=== PATIENT | male | born 1960 | race Caucasian/White ===

== ENCOUNTER 2022-05-23 16:08 | Outpatient (CLI) | payer BC, OTHER, SELFPAY ==
--- NOTE | ~2022-05-23 | CT_ITS ---
EXAMINATION:CT lung screening DATE: 05/23/2022 16:29 INDICATION: Tobacco use. Current smoker with 40 pack year history. TECHNIQUE: Computed tomography (CT) of the chest was performed without intravenous contrast. Automate d exposure control and iterative reconstruction technique were employed. The dose-length product (DLP ) was 216.92 mGy-cm. COMPARISON: None. FINDINGS: There is mild atelectasis bilaterally. There is a 2 mm nodule in right upper lobe. No pleur al effusion. The heart size is normal. There are coronary artery calcifications. No pericardial effus ion. There is mild bilateral gynecomastia. There is a 3.0 cm mass in right adrenal gland measuring lo w attenuation, consistent with an adenoma. There is a 3.2 cm mass in left adrenal gland measuring low attenuation, consistent with an adenoma. There is severe cervical spondylosis and mild thoracic spon dylosis. IMPRESSION: 1. Lung-RADS category 2: Benign appearance or behavior. Continue annual screening with noncontrast lo w-dose chest CT in 12 months. Reviewed, dictated and finalized at location A. IMPRESSION: 1. Lung-RADS category 2: Benign appearance or behavior. Continue annual screeni ng with noncontrast low-dose chest CT in 12 months.
== END 2022-05-23 16:09 | disposition home or self-care (01) ==
PROVIDERS: PCP Internal Medicine; Visit Provider Clinical Nurse Specialist
DX: Z12.2 Encounter for screening for malignant neoplasm of respiratory organs (principal); Z87.891 Personal history of nicotine dependence
CPT/HCPCS: 71271

== ENCOUNTER 2022-06-02 00:39 | Day surgery (SDC) | payer BC, OTHER, SELFPAY ==
[2022-05-21 10:01] VITALS: BMI 31.6
[2022-06-02 12:11] VITALS: BP 138/77; PULSE 56; RESP 18; TEMP 36.1; O2SAT 97; BMI 31.4
[2022-06-02] MEDS: LACTATED RINGERS 1,000 ML 150 ML IV CONT (12:20)
--- NOTE | 2022-06-02 12:33 | P.HP_ITS ---
History of Present Illness History of Present Illness Consent: Risks, benefits, and alternatives have been discussed and questions answered. Patient agrees to proceed with procedure. Chief complaint: positive cologuard, history of colon polyps Narrative: Gilles Valencia is a 61 year old male Presents for screening colonoscopy. Patient recently found to have positive Cologuard test. Patient has a history of colon polyps by previous colonoscopy. In 2013 adenomatous colon polyps were identified. Patient reports his current weight appetite bowel movements are normal. Patient denies abdominal pain. He has had no bleeding. Family history noncontributory. [facility] Past Medical History Medical History Hyperlipidemia Rash Thoracic stomach hernia Thoracic stomach hernia Surgical History Surgical History Hx of colonoscopy Family History Family History Sibling Diabetes mellitus Family history of pancreatic cancer Social History Social History Smoking status: Current every day smoker Tobacco type: cigarettes Alcohol intake: current Drinks per week: 6 Substance use: current Substance use type: marijuana Last use: 05/21/22 Living arrangements: with family Spiritual care concerns: No Meds Home Medications and Allergies Home Medications Medication Instructions Recorded Confirmed Type aspirin 81 mg tablet,delayed 81 mg PO DAILY 12/21/20 05/21/22 History release (Adult Aspirin Regimen) atorvastatin 10 mg tablet See Rx Instructions .Route 04/29/22 05/21/22 Rx .COMPLEX #90 tabs Allergies Allergy/AdvReac Type Severity Reaction Status Date / Time No Known Allergies Allergy Verified 06/02/22 12:10 Vital Signs Vital Signs - 24 hr 06/02/22 12:11 Temperature 97.0 F L Pulse Rate 56 L Respiratory Rate 18 Blood Pressure 138/77 Pulse Oximetry 97 Oxygen Delivery Room Air Exam Narrative: Physical exam reveals patient to be alert. Vital signs stable. HEENT exam is unremarkable. Patient is anicteric. Lungs are clear to auscultation and percussion. Heart is without murmur or extra sounds. Abdomen bowel sounds are present soft nontender with no organomegaly. Digital external rectal exam is normal. Assessment and Plan Assessment and plan (1) Positive colorectal cancer screening using Cologuard test: Code(s): R19.5 - Other fecal abnormalities Status: Acute Assessment and Plan: Patient has been found to be positive on a Cologuard test. Plan for screening colonoscopy at this time. (2) History of colon polyps: Code(s): Z86.010 - Personal history of colonic polyps Status: Acute Assessment and Plan: Patient has a history of adenomatous colon polyps. Most recently 2012. Plan for surveillance colonoscopy at 5 year intervals.
--- NOTE | 2022-06-02 12:54 | WPDANESEPPF ---
Anes - Initial Pre Proc Eval Procedure: Operation Date: 06/02/22 13:15 Proposed Procedures p Colonoscopy - Betito Buck MD Date/Time: 06/02/22 12:54 Surgeon: Betito Buck MD Pre Op Diagnosis: positive cologuard, history of colon polyps Patient Data Age: 61 Gender: M Height: 1.78 m Weight: 99.5 kg Last Vital Signs Temp 36.1 C L 06/02/22 12:11 Pulse 56 L 06/02/22 12:11 Resp 18 06/02/22 12:11 BP 138/77 06/02/22 12:11 Pulse Ox 97 06/02/22 12:11 O2 Del Method Room Air 06/02/22 12:11 Allergies Allergy/AdvReac Type Severity Reaction Status Date / Time No Known Allergies Allergy Verified 06/02/22 12:10 Home Medications Medication Instructions Recorded Confirmed Type aspirin 81 mg tablet,delayed 81 mg PO DAILY 12/21/20 05/21/22 History release (Adult Aspirin Regimen) atorvastatin 10 mg tablet See Rx Instructions .Route 04/29/22 05/21/22 Rx .COMPLEX #90 tabs Patient hx anesthesia problems: none Family hx anesthesia problems: none Results Review: All pre-operative results and documents have been reviewed as part of the pre-operative evaluation. [facility] Past Medical History Medical History Hyperlipidemia Rash Thoracic stomach hernia Thoracic stomach hernia Surgical History Surgical History Hx of colonoscopy Family History Family History Sibling Diabetes mellitus Family history of pancreatic cancer Social History Social History Smoking status: Current every day smoker Tobacco type: cigarettes Alcohol intake: current Drinks per week: 6 Substance use: current Substance use type: marijuana Last use: 05/21/22 Living arrangements: with family Spiritual care concerns: No Anes - Eval Final PreProcedure Day of Procedure 06/02/22 12:54 Patient weight: obese Heart: regular rate and rhythm Lungs: clear to auscultation Airway: Mallampati scale class II Last oral intake: >/= 8 hours ASA classification: II Emergent: no Anesthetic plan: proceed Anesthesia type and monitoring: general GIVS and standard monitoring Results Review: All pre-operative results and documents have been reviewed as part of the pre-operative evaluation. Informed Consent: The patient's anesthetic plan and its attendant risks and benefits were discussed with the patient/family/POA. Questions were solicited and answers provided to the satisfaction of the patient/family/POA.
[2022-06-02 14:03] VITALS: BP 124/73; PULSE 61; RESP 24; O2SAT 96
--- NOTE | 2022-06-02 14:03 | SUR.OPER ---
distal sigmoid colon polypectomy performed but polyp was not retrieved.dr bettencourt aware.
[2022-06-02 14:13] VITALS: BP 120/70; PULSE 60; RESP 21; O2SAT 96
[2022-06-02 14:23] VITALS: BP 137/68; PULSE 56; RESP 26; O2SAT 97
== END 2022-06-02 14:25 | disposition home or self-care (01) ==
PROVIDERS: PCP Internal Medicine; Visit Provider Internal Medicine Gastroenterology
PROC: 0DJD8ZZ Inspection of Lower Intestinal Tract, Via Natural or Artificial Opening Endoscopic (ICD-10-PCS; CPT 45378; principal; 2022-06-02 13:15)
DX: R19.5 Other fecal abnormalities (principal); K57.30 Diverticulosis of large intestine without perforation or abscess without bleeding; K64.8 Other hemorrhoids; D12.4 Benign neoplasm of descending colon; D12.5 Benign neoplasm of sigmoid colon; E78.5 Hyperlipidemia, unspecified; Z79.82 Long term (current) use of aspirin; F17.210 Nicotine dependence, cigarettes, uncomplicated; F12.90 Cannabis use, unspecified, uncomplicated; E66.9 Obesity, unspecified; Z68.31 Body mass index [BMI] 31.0-31.9, adult
CPT/HCPCS: 45385; 88305; J2704; J7120

== ENCOUNTER 2024-05-30 10:01 | Outpatient (CLI) | payer BC, SELFPAY ==
--- NOTE | ~2024-05-30 | CT_ITS ---
CT Scan of the Chest without Contrast: Clinical Indication: Lung cancer screening, nicotine dependence Technique: Contiguous sections were acquired throughout the chest without intravenous contrast. Dose reduction technique was used on this scan by utilizing automated exposure control and iterative recon struction technique. The dose-length product (DLP) was 304.39 mGy-cm. COMPARISON: 05/23/2022 Findings: There is no evidence of any significant mediastinal, hilar or axillary lymphadenopathy. Coronary sara ry calcifications are present. There is no evidence of pleural or pericardial effusion. The lungs are clear. No pulmonary nodules or infiltrates are noted. Images through the upper abdomen reveal stable low-density bilateral adrenal nodules, compatible bila teral adenomas.. Impression: Lung RADS 1: Negative. [address] advised[address] Reviewed, dictated and finalized at location . Impression: Lung RADS 1: Negative. [address] advised.
== END 2024-05-30 10:02 | disposition home or self-care (01) ==
LOC: MICIMG 10:02
PROVIDERS: PCP Clinical Nurse Specialist; Visit Provider Clinical Nurse Specialist
DX: Z12.2 Encounter for screening for malignant neoplasm of respiratory organs (principal); Z87.891 Personal history of nicotine dependence
CPT/HCPCS: 71271

== ENCOUNTER 2025-06-23 12:41 | Outpatient (CLI) | payer BC, SELFPAY ==
--- NOTE | ~2025-06-23 | CT_ITS ---
EXAMINATION: CT lung screening DATE: 06/23/2025 12:53 INDICATION: Personal history of nicotine dependence TECHNIQUE: Computed tomography (CT) of the chest was performed without intravenous contrast. Additional 3D reconstructions utilizing coronal maximum intensity projection (MIP) were performed. Automated exposure control and iterative reconstruction technique were employed. The dose-length product was 28 3.21 mGy-cm. COMPARISON: 05/30/2024 FINDINGS: Minimal linear discoid atelectasis at the bilateral lung bases. No suspicious pulmonary nodules, pneumonia, pulmonary edema or pleural effusion. Heart size is normal. Small amount of atherosclerotic coronary artery calcification. No pericardial effusion. Thoracic aorta is normal in caliber. No pathologically enlarged thoracic lymphadenopathy. Mild upper thoracic dextrocurvature with mild to moderate spondylosis. Bilateral low-attenuation adrenal adenomas measuring 2.7 x 2.1 similar on the left and 3.0 x 1.9 cm on the right. IMPRESSION: 1. Lung-RADS category 1: Negative. Continue annual screening with noncontrast low-dose chest CT in 12 months. Reviewed, dictated and finalized at location A. [employer] IMPRESSION: 1. Lung-RADS category 1: Negative. Continue annual screening with noncontrast l ow-dose chest CT in 12 months.
== END 2025-06-23 12:42 | disposition home or self-care (01) ==
LOC: MICIMG 12:42
PROVIDERS: PCP Clinical Nurse Specialist; Visit Provider Clinical Nurse Specialist
DX: Z12.2 Encounter for screening for malignant neoplasm of respiratory organs (principal); Z87.891 Personal history of nicotine dependence
CPT/HCPCS: 71271

== ENCOUNTER 2025-07-10 14:41 | Outpatient (CLI) | payer BC, SELFPAY ==
--- NOTE | 2025-07-12 07:52 | WPDPFTINT ---
PFT Procedure Performed PFT Procedure Performed Spirometry with Pre/Post Bronchodilator Plethysmography (Lung Vol) Diffusing Cap (DLCO) Flow Vol Loop PFT Interpretation This is a pulmonary function test with pre and post-bronchodilator spirometry, plethysmography and diffusing capacity. The test was performed and results interpreted in accordance with the 2019 and 2005 ATS/ERS Task Force guidelines respectively using the Global Lung Function Initiative-2012 reference equations. Patient demonstrated good effort and cooperation. Reproducibility criteria were met. The quality of the pre bronchodilator spirometry maneuver was Grade A and post bronchodilator spirometry maneuver was Grade A. Findings: Spirometry: The contour the inspiratory and expiratory flow tracing are normal. The pre bronchodilator FVC is 3.31 L, 77% predicted. The pre bronchodilator FEV1 is 2.39 L, 73% predicted. The pre bronchodilator FEV1: FVC ratio 72%. The post bronchodilator FVC is 3.67 L, representing an 11% increase. The post bronchodilator FEV1 is 2.78 L, representing a 16% increase. The post bronchodilator FEV1: FVC ratio is 76%. Plethysmography: The total lung capacity is 6.52 L, 96% predicted. The functional residual capacity is 3.28 L, 92% predicted. The residual volume is 2.84 L, 124% predicted. The residual volume: Total lung capacity ratio is 44%. Diffusing capacity: The diffusing capacity unadjusted for hemoglobin and carboxyhemoglobin is 22.2, 83% predicted. The diffusing capacity adjusted for alveolar volume is 4.19, 101% predicted. Impression: The FEV1 is less than 80% predicted and the FEV1: FVC ratio is greater than 70% consistent with Preserved Ratio Impaired Spirometry (PRISm) with a normal FVC. There is significant improvement after inhaling a single dose of albuterol. The increase in residual volume to total lung volume ratio is consistent with hyperinflation. The diffusing capacity is normal. There are no prior studies for comparison
== END 2025-07-10 14:42 | disposition home or self-care (01) ==
PROVIDERS: PCP Clinical Nurse Specialist; Visit Provider Clinical Nurse Specialist
DX: R94.2 Abnormal results of pulmonary function studies (principal); R06.2 Wheezing
CPT/HCPCS: 94060; 94726; 94729

== ENCOUNTER 2025-08-01 01:02 | Day surgery (SDC) | payer BC, SELFPAY ==
[2025-07-05 13:41] VITALS: BMI 32.8
[2025-08-01 08:17] VITALS: BP 134/82; PULSE 60; RESP 15; TEMP 35.8; O2SAT 94; BMI 32.6
[2025-08-01] MEDS: LACTATED RINGERS 1,000 ML 150 ML IV CONT (08:23)
--- NOTE | 2025-08-01 08:40 | P.PNAN_ITS ---
Anes - Initial Pre Proc Eval Procedure: Operation Date: 08/01/25 09:30 Proposed Procedures p Screening Colonoscopy - Giorgio Munoz MD Date/Time: 08/01/25 08:40 Surgeon: Giorgio Munoz MD Pre Op Diagnosis: Personal history of colon polyps, unspecified Patient Data Age: 64 Gender: M Height: 1.8 m Weight: 106.1 kg Last Vital Signs Temp 35.8 C L 08/01/25 08:17 Pulse 60 08/01/25 08:17 Resp 15 08/01/25 08:17 BP 134/82 08/01/25 08:17 Pulse Ox 94 08/01/25 08:17 O2 Del Method Room Air 08/01/25 08:17 Allergies Allergy/AdvReac Type Severity Reaction Status Date / Time No Known Allergies Allergy Verified 08/01/25 08:16 Home Medications ?Medication ?Instructions ?Recorded ?Confirmed ?Type aspirin 81 mg tablet,delayed 81 mg PO DAILY 12/21/20 1 History release (Adult Aspirin Regimen) albuterol sulfate 90 mcg/actuation 1 puff inhalation Q 4H PRN 03/07/25 07/05/25 Rx aerosol inhaler shortness of breath or wheez ing #8.5 grams atorvastatin 10 mg tablet (Lipitor) 10 mg PO QHS #30 t abs 04/25/25 08/01/25 Rx sodium,potassium,mag sulfates 17.5 See Rx Instructions PO .COMPLEX 06/13/25 07/05/25 Rx gram-3.13 gram-1.6 gram oral soln #354 mL (Suprep Bowel Prep Kit) Patient hx anesthesia problems: none Family hx anesthesia problems: none Results Review: All pre-operative results and documents have been reviewed as part of the pre- operative evaluation. [facility] Past Medical History Medical History (Updated 03/07/25 @ 23:00 by Chloe Rosales, MANAGER SALES SUPPORT, MEDICAL TECHNOLOGIST CLINICAL-C) Positive colorectal cancer screening using Cologuard test Rash Hyperlipidemia Thoracic stomach hernia Thoracic stomach hernia Surgical History Surgical History Hx of colonoscopy Family History Family History Sibling Diabetes mellitus Family history of pancreatic cancer Social History Social History (Updated 08/01/25 @ 08:43 by Rob Devries DO) Smoking packs per day: 0.75 Smoking cigarettes per day: 15.0 Smoking status: Current every day smoker Tobacco type: cigarettes Alcohol intake: current Alcohol use details: 4 beers most days Substance use: current Substance use type: marijuana Other substance usage details: Daily Last use: 05/21/22 Lack of Transportation: No Lack of Food: Never True Current Housing: I Have Housing Concerned About Future Housing: No Difficulty Paying Gas/Electric Bills: No Difficulty Paying for Meds: Decline to Answer Currently Unemployed: YES Education: High School Diploma/GED Difficulty w/ Childcare or Family Care: No Living arrangements: with family Spiritual care concerns: No Anes - Eval Final PreProcedure Day of Procedure 08/01/25 08:40 Patient weight: obese Heart: regular rate and rhythm Lungs: clear to auscultation Airway: Mallampati scale class II Neurological: alert and oriented Last oral intake: >/= 8 hours ASA classification: III Emergent: no Anesthetic plan: proceed Anesthesia type and monitoring: general GIVS and standard monitoring Results Review: All pre-operative results and documents have been reviewed as part of the pre- operative evaluation. Informed Consent: The patient's anesthetic plan and its attendant risks and benefits were discussed with the patient/family/POA. Questions were solicited and answers provided to the satisfaction of the patient/family/POA.
--- NOTE | 2025-08-01 09:05 | PM.HPGS ---
History of Present Illness History of Present Illness Consent: Risks, benefits, and alternatives have been discussed and questions answered. Patient agrees to proceed with procedure. Chief complaint: Personal history of colon polyps, unspecified Narrative: Gilles Valencia is a 64 year old male with history of colonic polyps. Review of Systems Review of Systems: All 11 of his symptoms on a negative except the ones mentioned in the H&P. [facility] Past Medical History Medical History (Updated 03/07/25 @ 23:00 by Chloe Rosales, AYAAN, POWER TRANSFORMER REPAIR SUPERVISOR-C) Positive colorectal cancer screening using Cologuard test Rash Hyperlipidemia Thoracic stomach hernia Thoracic stomach hernia Surgical History Surgical History Hx of colonoscopy Family History Family History Sibling Diabetes mellitus Family history of pancreatic cancer Social History Social History (Updated 08/01/25 @ 08:43 by Rob Devries, DO) Smoking packs per day: 0.75 Smoking cigarettes per day: 15.0 Smoking status: Current every day smoker Tobacco type: cigarettes Alcohol intake: current Alcohol use details: 4 beers most days Substance use: current Substance use type: marijuana Other substance usage details: Daily Last use: 05/21/22 Lack of Transportation: No Lack of Food: Never True Current Housing: I Have Housing Concerned About Future Housing: No Difficulty Paying Gas/Electric Bills: No Difficulty Paying for Meds: Decline to Answer Currently Unemployed: YES Education: High School Diploma/GED Difficulty w/ Childcare or Family Care: No Living arrangements: with family Spiritual care concerns: No Meds Home Medications and Allergies Home Medications ?Medication ?Instructions ?Recorded ?Confirmed ?Type aspirin 81 mg tablet,delayed 81 mg PO DAILY 12/21/20 08/01/25 History release (Adult Aspirin Regimen) albuterol sulfate 90 mcg/actuation 1 puff inhalation Q4H PRN 03/07/25 07/05/25 Rx aerosol inhaler shortness of breath or wheezing #8.5 grams atorvastatin 10 mg tablet (Lipitor) 10 mg PO QHS #30 tabs 04/25/25 08/01/25 Rx sodium,potassium,mag sulfates 17.5 See Rx Instructions PO .COMPLEX 06/13/25 07/05/25 Rx gram-3.13 gram-1.6 gram oral soln #354 mL (Suprep Bowel Prep Kit) Allergies Allergy/AdvReac Type Severity Reaction Status Date / Time No Known Allergies Allergy Verified 08/01/25 08:16 Vital Signs Vital Signs - 24 hr 08/01/25 08:17 Temperature 96.4 F L Pulse Rate 60 Respiratory Rate 15 Blood Pressure 134/82 Pulse Oximetry 94 Oxygen Delivery Room Air Exam Narrative: Physical exam reveals patient to be alert. Vital signs stable. HEENT exam is unremarkable. Patient is anicteric. Lungs are clear to auscultation and percussion. Heart is without murmur or extra sounds. Abdomen bowel sounds are present soft nontender with no organomegaly. Digital external rectal exam is normal. Assessment and Plan Assessment and plan (1) History of colon polyps: Code(s): Z86.010 - Personal history of colon polyps Status: Acute Plan 64-year-old male history of colonic polyps. Patient is here for surveillance colonoscopy.
--- NOTE | 2025-08-01 09:22 | S_PTH ---
PATIENT: Gilles Valencia LOC: [facility] U#:[id number] AGE/SX: 64/M ROOM: RE08/01/[address]: Giorgio Munoz MD : 1960 BED: DIS: 08/01/2025 SPEC #: [id number] RECD: 08/01/25 09:25 STATUS: RJ REBelkis #: [id number] LASHAY: 08/01/25 09:[address]: Yuliana Boone DEPT: [facility] RECD BY: Mikhail Silva ENTERED: 08/01/25 09:26 SP TYPE: Surgical OTHR DR: Chloe Rosales, AYAAN Munoz MD Tissues: A - Colon Polypectomy B - Colon Polypectomy Procedures: Hematoxylin and Eosin Stain Gross and Microscopic Level 4
[2025-08-01 09:26] VITALS: BP 124/75; PULSE 65; RESP 22; O2SAT 93
--- NOTE | 2025-08-01 09:29 | ECG_ITS ---
Test Date: 2025-08-01 09:37:04 Measurements Intervals [place] Rate: 63 P: 59 DC: 150 QRS: 10 QRSD: 113 T: 31 QT: 415 QTc: 425 Interpretive Statements SINUS RHYTHM WITH MARKED SINUS ARRHYTHMIA INCOMPLETE RIGHT BUNDLE BRANCH BLOCK BASELINE ARTIFACT- I, II, AVR, AVL, AVF, V1 BORDERLINE ECG No previous ECG available for comparison Electronically Signed On 08-01-2025 10:05:23 RAIL SETTER by Cuong Lara D.O.
[2025-08-01 09:36] VITALS: BP 118/77; PULSE 63; RESP 22; O2SAT 96
[2025-08-01 09:46] VITALS: BP 125/78; PULSE 63; RESP 22; O2SAT 96
== END 2025-08-01 10:00 | disposition home or self-care (01) ==
PROVIDERS: Internal Medicine Gastroenterology; PCP Clinical Nurse Specialist; Referring Provider Internal Medicine Gastroenterology; Visit Provider Internal Medicine Gastroenterology
PROC: 0DJD8ZZ Inspection of Lower Intestinal Tract, Via Natural or Artificial Opening Endoscopic (ICD-10-PCS; CPT 45378; principal; 2025-08-01 09:30)
DX: Z12.11 Encounter for screening for malignant neoplasm of colon (principal); D12.3 Benign neoplasm of transverse colon; K62.1 Rectal polyp; K57.30 Diverticulosis of large intestine without perforation or abscess without bleeding; F17.210 Nicotine dependence, cigarettes, uncomplicated; F12.90 Cannabis use, unspecified, uncomplicated; E66.9 Obesity, unspecified; Z68.32 Body mass index [BMI] 32.0-32.9, adult
CPT/HCPCS: 45385; 88305; 93005; J2003; J2704; J7120